=== PATIENT | female | born 1960 | race Caucasian/White ===

== ENCOUNTER 2020-08-28 05:50 | Day surgery (SDC) | payer MEDICARE ==
[~2020-08-28] VITALS: Ht 167.6 cm; Wt 67.6 kg
[2020-08-28] MEDS ORDERED: LIDOCAINE/PF 1%, 30ML ONE (06:48)
[2020-08-28] MEDS ORDERED: EPINEPHRINE 1 MG/ML, 1ML ONE (06:48)
[2020-08-28] MEDS ORDERED: EPINEPHRINE TOPICAL SOLN 1 MG/ML, 30ML ONE (06:48)
[2020-08-28] MEDS ORDERED: FLUORESCEIN SODIUM 500 MG/5 ML ONE (06:48)
[2020-08-28] MEDS ORDERED: CHLORHEXIDINE 15 ML UDC ONE (06:52)
[2020-08-28 06:59] VITALS: BP 109/72
[2020-08-28] MEDS ORDERED: BUSP30TA PO (06:59)
[2020-08-28] MEDS ORDERED: LEVO150T5 PO (06:59)
[2020-08-28] MEDS ORDERED: TRAZ150T62 PO (06:59)
[2020-08-28] MEDS ORDERED: DULO60CA56 PO (06:59)
[2020-08-28] MEDS ORDERED: CYAN-10 PO (06:59)
[2020-08-28] MEDS ORDERED: CHOL10003 PO (06:59)
[2020-08-28] MEDS ORDERED: GABA300C PO (06:59)
[2020-08-28] MEDS ORDERED: OMEG1CAP23 PO (06:59)
[2020-08-28] MEDS ORDERED: ATOR20TA37 PO (06:59)
[2020-08-28] MEDS ORDERED: DIAZ5TAB4 PO (06:59)
[2020-08-28] MEDS ORDERED: VITA-73 PO (06:59)
[2020-08-28] MEDS ORDERED: CHLORHEXIDINE 15 ML UDC MM ONE (07:00)
[2020-08-28] MEDS ORDERED: LACTATED RINGERS 1,000 ML IV SCH (07:00)
[2020-08-28] MEDS ORDERED: FENTANYL PF 100 MCG/2ML ONE ×2 (07:21→09:44)
[2020-08-28] MEDS ORDERED: LABETALOL 5MG/ML, 20ML IV PRN (07:30)
[2020-08-28] MEDS ORDERED: DIPHENHYDRAMINE 50 MG/ML, 1ML IVPush PRN (07:30)
[2020-08-28] MEDS ORDERED: MEPERIDINE/PF 25MG/0.5ML IVPush PRN (07:30)
[2020-08-28] MEDS ORDERED: hydrALAzine 20 MG/ML, 1ML IV PRN (07:30)
[2020-08-28] MEDS ORDERED: HYDROmorphone 1 MG/ML, 1ML INJ IVPush PRN (07:30)
[2020-08-28] MEDS ORDERED: HALOPERIDOL 5 MG/ML IV PRN (07:30)
[2020-08-28] MEDS ORDERED: HYDROcodone/APAP 7.5-325MG/15ML UDC PO PRN (07:30)
[2020-08-28] MEDS ORDERED: PROMETHAZINE 25 MG/ML, 1ML IVPush PRN (07:30)
[2020-08-28] MEDS ORDERED: FENTANYL PF 100 MCG/2ML IV PRN (07:30)
[2020-08-28] MEDS ORDERED: OXYcodone 5 MG/5 ML ORAL.SOL UDC PO PRN (07:30)
[2020-08-28] MEDS ORDERED: CIPROFLOXACIN DEXAMETHASONE EAR SUSP 7.5ML EACH EAR SCH (09:00)
[2020-08-28] MEDS ORDERED: DEXAMETHASONE 4 MG/ML, 1ML ONE (09:47)
[2020-08-28] MEDS ORDERED: [UNRECOGNIZED DRUG - OTHER] ONE (09:47)
[2020-08-28] MEDS ORDERED: ONDANSETRON 2MG/ML, 2ML ONE (09:47)
[2020-08-28] MEDS ORDERED: PROPOFOL 10 MG/ML, 20ML ONE (09:47)
[2020-08-28] MEDS ORDERED: KETOROLAC 30 MG/1 ML ONE (10:03)
== END 2020-08-28 11:50 | disposition home or self-care (01) ==
LOC: OUT 05:50
PROVIDERS: ATTEND Otolaryngology
DX: H66.93 Otitis media, unspecified, bilateral (principal); H90.6 Mixed conductive and sensorineural hearing loss, bilateral; H69.83 Other specified disorders of Eustachian tube, bilateral; J44.9 Chronic obstructive pulmonary disease, unspecified; E03.9 Hypothyroidism, unspecified; G47.33 Obstructive sleep apnea (adult) (pediatric); Z20.822 Contact with and (suspected) exposure to COVID-19; Z79.899 Other long term (current) drug therapy; Z88.6 Allergy status to analgesic agent
CPT/HCPCS: 69436; 93005; J1100; J1885; J2405; J2704; J3010; J7120; U0003; J0171; J9043